=== PATIENT | female | born 1985 | race Caucasian/White ===

== ENCOUNTER 2016-08-30 05:15 | Inpatient (IN) ==
--- NOTE | 2016-08-29 16:48 | HISTORY AND PHYSICAL ---
PREOPERATIVE DIAGNOSES: 1. Intrauterine at term. 2. Previous section for repeat section. 3. Undesired fertility 4. Asthma. 5. Depression. CONDITION: Stable. Ms. Barry is a 31-year-old, 2, para 1, with estimated date of delivery of 09/06/2016 who presents for repeat delivery and tubal ligation. She is without complaints. She has had care this since the first trimester. Her rubella was read as equivocal, A- positive blood type, negative hepatitis B, negative HIV. RPR is nonreactive. Her GBS is negative and she passed her glucose tolerance test. PAST MEDICAL HISTORY: Again asthma, depression. PAST SURGICAL HISTORY: delivery and oral surgery. MEDICATIONS: Albuterol nebulizer, ProAir, vitamins and iron tablets. ALLERGIES: Sulfa drugs, Vioxx, latex, morphine and Demerol.( She does tolerate Percocet.) FAMILY HISTORY: Noncontributory. SOCIAL HISTORY: She denies tobacco, alcohol, or drug use. Blood pressure 134/76, weight 234, height 62 inches. She is alert and cooperative, no distress. Neck: Is supple. Lungs: Clear. Heart: Regular sinus rhythm. Abdomen: Is benign but gravid. Pelvic: Deferred. Extremities: No cyanosis, clubbing, edema in her extremities. ASSESSMENT: Term , previous delivery, undesired fertility, asthma, depression. PLAN: Repeat delivery and tubal ligation. MTDD
[2016-08-30] MEDS ORDERED: KEFZOL 1 GM/D5W 50 ML IV PRN (05:21)
[2016-08-30] MEDS ORDERED: LR 1,000 ML IV SCH (05:30)
[2016-08-30 05:57] LABS: URINE SOURCE VOIDED
[2016-08-30 05:57] LABS: MANUAL DIFF NEEDED? NO
[2016-08-30 06:00] LABS: BASO% 0.4 % (0.0-0.8); EOS# 0.19 X1000 (0.0-0.7); EOS% 1.6 % (0.0-10.0); HEMOGLOBIN 12.6 g/dL (12.0-16.0); IMM GRAN# 0.07 X1000 (0.0-0.04); IMM GRAN% 0.6 % (0.0-0.5); LYMPH# 2.56 X1000 (1.2-3.4); LYMPH% 21.4 % (20.5-51.1); MCH 29.6 PG (27-31); MCHC 33.2 g/dL (33-37); MCV 89.4 FL (81-99); MONO# 0.64 X1000 (0.11-0.59); MONO% 5.4 % (1.7-9.3); MPV 11.5 FL (7.4-10.4); NEUT% 70.6 % (42.2-75.2); PLT 254 X1000 (130-400); RBC 4.25 XMIL (4.2-5.4)
[2016-08-30] MEDS ORDERED: REGLAN IV ONE (06:07)
[2016-08-30] MEDS ORDERED: PEPCID IV ONE (06:08)
[2016-08-30] MEDS ORDERED: SODIUM CHLORIDE 0.9% INJ ONE (06:08)
[2016-08-30] MEDS ORDERED: BICITRA PO ONE (06:08)
[2016-08-30 06:09] LABS: BILIRUBIN URINE NEGATIVE (NEGATIVE); BLOOD URINE NEGATIVE (NEGATIVE); CLARITY SL. CLOUDY (CLEAR); COLOR YELLOW; GLUCOSE URINE NEGATIVE (NEGATIVE); LEUKOCYTES URINE NEGATIVE (NEGATIVE); NITRITE URINE NEGATIVE (NEGATIVE); PH URINE 6.5; PROTEIN URINE NEGATIVE (NEGATIVE); SP GRAVITY URINE 1.015; UROBILINOGEN URINE NORMAL
[2016-08-30] MEDS ORDERED: FENTANYL ONE (06:58)
[2016-08-30] MEDS ORDERED: PITOCIN ONE (06:58)
[2016-08-30] MEDS ORDERED: BENADRYL ONE (06:58)
[2016-08-30] MEDS ORDERED: TORADOL ONE (06:58)
[2016-08-30] MEDS ORDERED: METHERGINE ONE (06:59)
[2016-08-30] MEDS ORDERED: HEMABATE ONE (06:59)
[2016-08-30] MEDS ORDERED: DILAUDID ONE (06:59)
[2016-08-30] MEDS ORDERED: LR 0 ML ONE (06:59)
[2016-08-30] MEDS ORDERED: NEO-SYNEPHRINE ONE (08:34)
[2016-08-30] MEDS ORDERED: PITOCIN 20 UNITS/LR 1,000 ML IV ONE (08:59)
[2016-08-30] MEDS ORDERED: M-M-R II VACCINE SUBQ ONE (08:59)
[2016-08-30] MEDS ORDERED: DEMEROL PO PRN ×2 (08:59)
[2016-08-30] MEDS ORDERED: PERCOCET-5 PO PRN (08:59)
[2016-08-30] MEDS ORDERED: PHENERGAN IM PRN (08:59)
[2016-08-30] MEDS ORDERED: DULCOLAX PR PRN (08:59)
[2016-08-30] MEDS ORDERED: BOOSTRIX VACCINE IM ONE (08:59)
[2016-08-30] MEDS ORDERED: DEMEROL IM PRN (08:59)
[2016-08-30] MEDS ORDERED: PITOCIN IM PRN (08:59)
[2016-08-30] MEDS ORDERED: CYTOTEC PO PRN (08:59)
[2016-08-30] MEDS ORDERED: VENTOLIN HFA INH PRN (08:59)
[2016-08-30] MEDS ORDERED: HYDROXYZINE PO PRN (08:59)
[2016-08-30] MEDS ORDERED: HYDROXYZINE IM PRN (08:59)
[2016-08-30] MEDS ORDERED: AMBIEN PO PRN (08:59)
[2016-08-30] MEDS ORDERED: FOLIC ACID PO SCH (09:00)
[2016-08-30] MEDS ORDERED: [UNRECOGNIZED DRUG - OTHER] PO SCH (09:00)
[2016-08-30] MEDS ORDERED: IRON FUM PO SCH (09:00)
[2016-08-30] MEDS ORDERED: PNV95 PO SCH (09:00)
[2016-08-30] MEDS ORDERED: FOLIC PO SCH (09:00)
[2016-08-30] MEDS ORDERED: CASEI PO SCH (09:00)
[2016-08-30] MEDS: TORADOL IV SCH ×2 (09:13→19:40)
[2016-08-30] MEDS: MYLICON PO SCH ×3 (09:14→22:16)
[2016-08-30] MEDS ORDERED: BENADRYL IV PRN ×2 (09:15→10:29)
[2016-08-30] MEDS ORDERED: ZOFRAN IV PRN ×4 (09:45→10:31)
[2016-08-30] MEDS ORDERED: ZOFRAN ODT PO PRN (10:29)
[2016-08-30] MEDS ORDERED: NARCAN INJ PRN (10:29)
[2016-08-30] MEDS ORDERED: DILAUDID IV PRN (10:30)
--- NOTE | 2016-08-30 11:16 | OPERATIVE NOTE ---
PROCEDURE DATE : 08/30/2016 PREOPERATIVE DIAGNOSES: 1. Intrauterine at term. 2. Previous section. 3. Undesired fertility. 4. Asthma. 5. Depression. POSTOPERATIVE DIAGNOSES: 1. Intrauterine at term. 2. Previous section. 3. Undesired fertility. 4. Asthma. 5. Depression. PROCEDURE: Repeat low transverse section with bilateral fimbriectomy. PHYSICIAN: Bandar Charlton MD [employer] CONTACT: Bandar Nava MD ANESTHESIA: Spinal done with Dr. Parker. FINDINGS: Viable female infant, 9/9 Apgars, 7 pounds 15 ounces. ESTIMATED BLOOD LOSS: 500 mL. COMPLICATIONS: None. PATHOLOGY: Bilateral fimbria. DRAINS: Pollack catheter. INDICATIONS: Please refer to Ms. Barry's records and [facility]. DESCRIPTION OF PROCEDURE: The morning of the surgery, consents were verified. She was brought to the operating room were spinal anesthesia was administered. heart tones were found to be reassuring. Pollack catheter was placed and she was prepped and draped in sterile fashion. A Pfannenstiel skin incision was made across the lower abdomen through the subcuticular tissues to the fascia. The fascia was nicked in the midline, and the cut on the fascia was extended laterally with curved Mayos. The rectus muscle was dissected up from underneath the rectus fascia both cephalad and caudad. There was some bleeding at the muscle which was handled with electrocautery. The midline was identified and opened sharply and muscle and peritoneum were pulled to the side. A bladder blade was placed and a hysterotomy incision was made in lower uterine segment in the midline. Once membranes were encountered, the incision was enlarged by pulling cephalad and caudad, hand inserted into the lower pelvis. The infant's head was elevated through the hysterotomy incision, membranes ruptured, clear fluid, head and rest of the body delivered without difficulty. Cord doubly clamped and cut. Care of infant taken over by nursery personnel. Cord blood was obtained. Uterus was massaged. She delivered the placenta which was delivered intact. The uterus was then exteriorized and wiped free of clots and remaining placental tissue. Hysterotomy incision was closed in a single layer of 0 Vicryl running and locking. Once this was done, attention was turned to the tubals. It should be noted the fundus, tubes and ovaries appeared normal. The right fimbriated end of the tube was elevated and this was tied off with plain gut and then cut and removed. Good hemostasis at the pedicle. This was repeated on patient's left side. The uterus was placed into the abdomen. Irrigation was done. No bleeding was noted. The tubal pedicles and the hysterotomy incision were all dry, so bladder was allowed to fall into place. Peritoneum was reapproximated with chromic. Fascia was reapproximated with 0 Vicryl running nonlocking. Subcutaneous tissue was irrigated and made hemostatic by electrocautery and then skin was closed with 3-0 Biosyn in a subcuticular stitch. All counts were correct, and the patient was taken to her room to recover.
[2016-08-30] MEDS: DILAUDID IV PRN (17:55)
[2016-08-30] MEDS: PITOCIN 10 UNITS/LR 1,000 ML IV SCH (19:18)
[2016-08-30] MEDS: PERICOLACE PO SCH (22:16)
[2016-08-31] MEDS: DILAUDID IV PRN ×2 (00:26→06:10)
[2016-08-31] MEDS: TORADOL IV SCH (01:57)
[2016-08-31] MEDS ORDERED: PITOCIN 10 UNITS/LR 1,000 ML ONE (03:10)
[2016-08-31] MEDS: PITOCIN 10 UNITS/LR 1,000 ML IV SCH (03:13)
[2016-08-31 05:33] LABS: MANUAL DIFF NEEDED? NO
[2016-08-31 05:51] LABS: BASO% 0.1 % (0.0-0.8); EOS# 0.05 X1000 (0.0-0.7); EOS% 0.4 % (0.0-10.0); HEMATOCRIT 30.3 % (37.0-47.0); HEMOGLOBIN 9.7 g/dL (12.0-16.0); IMM GRAN# 0.05 X1000 (0.0-0.04); IMM GRAN% 0.4 % (0.0-0.5); LYMPH# 1.63 X1000 (1.2-3.4); MCH 29.8 PG (27-31); MCV 92.9 FL (81-99); MONO% 7.4 % (1.7-9.3); MPV 11.6 FL (7.4-10.4); NEUT% 79.7 % (42.2-75.2); PLT 191 X1000 (130-400); RBC 3.26 XMIL (4.2-5.4)
[2016-08-31] MEDS ORDERED: LR 1,000 ML IV SCH (08:20)
[2016-08-31] MEDS ORDERED: TORADOL ONE ×2 (08:47→14:33)
[2016-08-31] MEDS: PRECARE PO SCH (08:53)
[2016-08-31] MEDS: MYLICON PO SCH ×5 (08:53→21:09)
[2016-08-31] MEDS: HEMOCYTE PLUS CAPSULE PO SCH (08:53)
[2016-08-31] MEDS: PERCOCET-10 PO PRN ×3 (11:06→18:58)
[2016-08-31] MEDS ORDERED: SODIUM CHLORIDE 0.9% 10 ML ONE (14:34)
[2016-08-31] MEDS: MOTRIN PO PRN (18:59)
[2016-08-31] MEDS: PERICOLACE PO SCH (21:09)
[2016-09-01] MEDS: PERCOCET-10 PO PRN ×2 (01:02→04:51)
[2016-09-01] MEDS: MYLICON PO PRN ×2 (01:19→04:51)
[2016-09-01] MEDS: MOTRIN PO PRN (04:51)
[2016-09-01 08:37] VITALS: BP 119/63
[2016-09-01] MEDS: MYLICON PO SCH (10:06)
[2016-09-01] MEDS: PRECARE PO SCH (10:06)
[2016-09-01] MEDS: HEMOCYTE PLUS CAPSULE PO SCH (10:06)
--- NOTE | 2016-09-01 13:49 | DISCHARGE SUMMARY ---
ADMISSION DATE: 08/30/2016 DISCHARGE DATE: 09/01/2016 ADMITTING DIAGNOSES: 1. Term . 2. Previous section, requesting repeat section. 3. Undesired fertility. PRINCIPAL DIAGNOSIS: 1. Term . 2. Previous section, requesting repeat section. 3. Undesired fertility. PRINCIPAL PROCEDURE: Repeat section and tubal sterilization. SUMMARY: Dolly Barry is a 30-year-old, 2, para 1-0-0-1, who is at term gestation. She has had an uncomplicated . Her first ended in a section. She was admitted to the hospital on 08/[address] Charlton and underwent a repeat low-transverse . She also had a bilateral fimbriectomy due to her desire for permanent tubal sterilization. She delivered a female infant weighing 7 pounds and 15 ounces with Apgars of 9 at 1 minute and 9 at 5 minutes. There were no intraoperative complications. Postoperatively, the patient did well. She remained afebrile and all vital signs were stable. She had an admission hemoglobin and hematocrit of 12.6/38 with discharge hemoglobin and hematocrit 0.3. On the day of discharge, cardiac and pulmonary examinations normal. Bowel and bladder function was normal. Incision was clean and dry and she was having scant vaginal bleeding. Ms. Barry is being discharged today and will be seen back in the office in 1 week. Routine discharge instructions, activity limitations, and precautions were discussed. She will continue vitamins. She is given prescriptions for Percocet 10 #30 and Motrin 800 mg, for postoperative pain.
== END 2016-09-01 11:40 | disposition home or self-care (01) | DRG 766 ==
LOC: P.LD 05:15
PROVIDERS: ADMIT Obstetrics & Gynecology; ATTEND Obstetrics & Gynecology
PROC: 10D00Z1 Extraction of Products of Conception, Low, Open Approach (ICD-10-PCS; principal; 2016-08-30 07:30)
PROC: 0UB70ZZ Excision of Bilateral Fallopian Tubes, Open Approach (ICD-10-PCS; 2016-08-30 07:30)
DX: O34.211 Maternal care for low transverse scar from previous cesarean delivery (principal); F32.9 Major depressive disorder, single episode, unspecified; Z37.0 Single live birth; O99.344 Other mental disorders complicating childbirth; Z30.2 Encounter for sterilization; Z3A.39 39 weeks gestation of pregnancy; O26.893 Other specified pregnancy related conditions, third trimester; J45.909 Unspecified asthma, uncomplicated; Z23 Encounter for immunization
CPT/HCPCS: 59025; 81003; 85025; 86592; 86850; 86900; 86901; 90707; 94799; J0690; J1170; J1200; J1885; J2210; J2370; J2405; J2590; J2765; J3010; J7120; S0028